=== PATIENT | male | born 1965 | race Caucasian/White ===

== ENCOUNTER → 2016-12-02 | Outpatient (CLI) | payer OTHER, BC ==
[~2016-12-02] MED LIST: HYDR-5688 PO; KETO2CRE14 TD; MINO100C22 PO
--- NOTE | 2016-12-02 15:25 | DIAGNOSTIC IMAGING REPORT ---
MRI LEFT KNEE NO CONTRAST CLINICAL HISTORY: Left knee pain. History of prior knee surgery. COMPARISON STUDY: 10/28/2014 FINDINGS: Imaging was performed in sagittal, coronal, and axial planes. There are no areas of marrow edema to indicate occult fracture or bone bruise. The patellar retinacular structures appear intact. The anterior and posterior cruciate ligaments appear intact. The patellar and quadriceps tendons appear intact. There is a deformity involving the posterior horn the medial meniscus, consistent with a tear. There is chondrosis involving the lateral femoral condyle both anteriorly and in its undersurface. IMPRESSION: 1. Cartilaginous defects involving the anterior and undersurface of the lateral femoral condyle. 2. Irregularity of the posterior horn the medial meniscus, consistent with a tear 3. No evidence of cruciate or collateral ligament disruption Electronically signed by: Amado Landers M.D. 12/02/2016 3:24 PM Dictated Date/Time: 12/02/2016 3:15 PM
== END | disposition home or self-care (01) ==
LOC: C.MRIBC 14:00
PROVIDERS: ATTEND Orthopaedic Surgery Sports Medicine
DX: M25.562 Pain in left knee (principal); R93.7 Abnormal findings on diagnostic imaging of other parts of musculoskeletal system

== ENCOUNTER → 2017-01-25 | Outpatient (CLI) | payer BC ==
[~2017-01-25] MED LIST changes: -HYDR-5688 PO
[2017-01-25 12:42] LABS: BASO % 0.7 %; BASO ABS # 0.06 K/uL (0-0.2); COMPLETE YES; HEMATOCRIT 49.5 % (42-52); IG% 0.3 %; LYMPH % 28.3 %; LYMPH ABS # 2.53 K/uL (1.2-3.4); MEAN CELL VOLUME 91.2 fL (80-100); MEAN CORPUSCULAR HEMOGLOBIN 31.9 pg (25-34); MEAN CORPUSCULAR HGB CONC 34.9 g/dl (32-36); MEAN PLATELET VOLUME 12.1 fL (7.4-10.4); MONO % 8.1 %; NEUT % 59.6 %; PLATELET COUNT 167 K/uL (130-400); RED BLOOD COUNT 5.43 M/uL (4.7-6.1); WHITE BLOOD COUNT 8.94 K/uL (4.8-10.8)
[2017-01-25 13:04] LABS: ESTIMATED AVERAGE GLUCOSE 137 mg/dl; HA1C FLAG Normal (Normal)
[2017-01-25 13:12] LABS: ALT/SGPT 68 U/L (12-78); AST/SGOT 27 U/L (15-37); BLOOD UREA NITROGEN 18 mg/dl (7-18); BUN/CREATININE RATIO 16.3 (10-20); CARBON DIOXIDE 26 mmol/L (21-32); CHLORIDE 105 mmol/L (98-107); CHOLESTEROL 203 mg/dl (0-200); GLUCOSE 190 mg/dl (70-99); POTASSIUM 3.9 mmol/L (3.5-5.1); SODIUM 140 mmol/L (136-145); TRIGLYCERIDES 189 mg/dl (0-150); VERY LOW DENSITY LIPOPROT CALC 38 mg/dl
[2017-01-25 13:14] LABS: ALKALINE PHOSPHATASE 59 U/L (45-117); CHOLESTEROL/HDL RATIO 3.6; HDL CHOLESTEROL 57 mg/dl
[2017-01-25 13:28] LABS: CALCIUM 9.3 mg/dl (8.5-10.1)
== END | disposition home or self-care (01) ==
LOC: C.LABSPEC 12:08
PROVIDERS: ATTEND Internal Medicine
DX: R73.9 Hyperglycemia, unspecified (principal); E78.5 Hyperlipidemia, unspecified; M19.90 Unspecified osteoarthritis, unspecified site